=== PATIENT | male | born 1985 | race Caucasian/White ===

== ENCOUNTER 2016-08-02 21:48 | Emergency (ER) | payer OTHER ==
[~2016-08-02] VITALS: Ht 175.3 cm; Wt 79.5 kg
[2016-08-02 21:56] VITALS: TEMP 97.4
[2016-08-02] MEDS ORDERED: ILOTYCIN5 MG/GM OS (22:45)
[2016-08-03 00:07] VITALS: BP 126/78; PULSE 70
== END 2016-08-03 00:08 | disposition home or self-care (01) ==
LOC: COL.ER 21:48
DX: T15.02XA Foreign body in cornea, left eye, initial encounter (principal); X58.XXXA Exposure to other specified factors, initial encounter